=== PATIENT | male | born 1980 | race African-American/Black ===

== ENCOUNTER 2018-03-24 17:03 | Emergency (ER) | payer BC ==
[2018-03-24] MEDS ORDERED: LACTATED RINGERS SOLUTION 1,000 ML IV STA (17:05)
[2018-03-24 17:11] VITALS: TEMP 98.7; BMI 29.0
--- NOTE | 2018-03-24 17:33 | PDOC ---
History of Present Illness - General Chief Complaint: Pain, Acute Stated Complaint: ABD PAIN History Source: Patient Exam Limitations: No Limitations - History of Present Illness Initial Comments: 03/24/18 19:12 Judson Morales 38 YOM with h/o GERD and no surgical history presenting with acute onset constant crampy nonradiating periumbilical abdominal pain x today since 10am, a/w nausea.. +tolerating crackers and tea. +nausea. No vomiting or diarrhea, bloody stools, fevers or chills. tylenol/zantac and tums KILN PUSHER with some relief. Ate [employer] last night, in addition to milk and frosted flakes , hot peppers and ramen (which are known precipitants of GERD and abdominal pain ), felt some vague abdominal pain following dinner last night. no ETOH or tobacco or drug use. no travel or sick contacts. 03/24/18 19:12 Past History - Past Medical History Allergies/Adverse Reactions: Allergies Allergy/AdvReac Type Severity Reaction Status Date / Time No Known Allergies Allergy Verified 03/24/18 17:05 Home Medications: Ambulatory Orders Esomeprazole Magnesium [Nexium 24Hr] 40 mg PO DAILY PRN 03/24/18 Ondansetron [Zofran Odt -] 4 mg SL TID PRN #9 od.tablet 03/24/18 Cardiac Disorders: Yes (HEART MURMUR) COPD: No GI Disorders: Yes (ACID REFLUX) - Suicide/Smoking/Psychosocial Hx Smoking History: Never smoked Have you smoked in the past 12 months: No Information on smoking cessation initiated: No Hx Alcohol Use: No Drug/Substance Use Hx: No Abd/GI Specific PMHX - Complaint Specific PMHX Colitis: No Diverticulitis: No GERD: Yes Hepatitis: No Irritable Bowel Synd (IBS): No Pancreatitis: No GI Ulcer Disease: No Review of Systems - Review of Systems Able to Perform ROS?: Yes Comments:: 03/24/18 19:13 GENERAL/CONSTITUTIONAL: No fever or chills. No weakness. no sweats. HEAD, EYES, EARS, NOSE AND THROAT: No sore throat or mouth pain. No difficulty swallowing.. No congestion. CARDIOVASCULAR: No chest pain or palpitations,. RESPIRATORY: No SOB, cough. GASTROINTESTINAL +abdominal pain, +nausea. No vomiting. No diarrhea or constipation. No bloody stools. GENITOURINARY: No hematuria, dysuria, frequency, urgency or other changes. MUSCULOSKELETAL: No joint or muscle swelling or pain. No neck or back pain. SKIN: No rash or changes in skin color or lesions. NEUROLOGIC: No headache, dizziness HEMATOLOGIC/LYMPHATIC: No anemia ALLERGIC/IMMUNOLOGIC: No allergy. All other systems reviewed and negative, or as documented in HPI. *Physical Exam - Vital Signs Last Vital Signs Temp Pulse Resp BP Pulse Ox 98.7 F 83 18 148/105 97 03/24/18 17:03 03/24/18 17:03 03/24/18 17:03 03/24/18 17:03 03/24/18 17:03 - Physical Exam Comments: 03/24/18 19:13 General: Well appearing, awake and alert, NAD. HEENT: NCAT, PERRL, EOMI, clear conjunctiva, anicteric, moist mucus membranes, clear oropharynx, no oral lesions.. Neck: neck supple Lungs: CTAB, normal and even respirations, no respiratory distress Heart: RRR, no murmurs, 2+ peripheral pulses throughout, no peripheral edema Abdomen: soft, normal inspection. +periumbilical TTP, no focal lower quad tenderness, no murphys sign or mcburneys point tenderess, no peritoneal signs. No CVAT Back: nontender, normal inspection and ROM MSK: no edema, SAGASTUME x4 Neuro: alert Skin: warm and well perfused, cap refill <2 sec, normal color ED Treatment Course - LABORATORY CBC & Chemistry Diagram: 03/24/18 17:30 03/24/18 17:30 Medical Decision Making - Medical Decision Making 03/24/18 19:13 38 YOM with periumbilical pain and nausea today. DDx abdominal pain: GERD, PUD, esophageal spasm, pancreatitis, hepatitis, enteritis, cholecystitis, hernia, appendicitis, diverticulitis vital signs reviewed, wnl, no fevers. nontoxic appearing plan: CBC, CMP, lipase. mylanta and zofran, IVF. morphine for 6/10 abdominal pain, side effects cautioned. on clinical reeval 630pm, feels much improved, still pending lipase. shared decision making with patient with options including CT a/p to r/o early appy with vague periumbilical abdominal pain and leukocytosis or serial exams/ observation with discharge home with close return precautions if worsening symptoms including fevers, RLQ/LLQ pain, dehydration, vomiting, BM changes or other acute changes. lower suspicion for appy given no lower quad pain, fevers or systemic sx. pt amenable to latter option, who is reasonable to follow up and follow instructions, rx zofran PRN. stable condition, will discharge with reeval, lipase also normal. 03/24/18 19:13 03/25/18 23:19 *DC/Admit/Observation/Transfer Diagnosis at time of Disposition: Abdominal pain Qualifiers: Abdominal location: periumbilical Qualified Code(s): R10.33 - Periumbilical pain - Discharge Dispostion Disposition: HOME Condition at time of disposition: Stable - Prescriptions Prescriptions: Ondansetron [Zofran Odt -] 4 mg SL TID PRN #9 od.tablet PRN Reason: Nausea - Referrals - Patient Instructions Printed Discharge Instructions: DI for Abdominal Pain-Adult Additional Instructions: Your laboratory were negative for abnormalities,only elevated white blood cell count that could indicate infection/inflammation or stress response. Follow up with your physician and consultants as instructed, take your medications as instructed including zofran three times a day as needed for nausea. Return if worsening symptoms including fevers, headache, vomiting, right or left lower quadrant abdominal pain, chest pain, shortness of breath, syncope, dehydration, inability to take things by mouth, altered mental status, or worsening concerning symptoms. stay hydrated, rest well. - Post Discharge Activity
[2018-03-24 17:59] LABS: BASO % 0.5 % (0-2.0); HEMOGLOBIN 14.1 GM/dl (11.7-16.9); LYMPH % 6.4 % (8-40); MCH 26.9 pg (25.7-33.7); MCHC 33.6 g/dl (32.0-35.9); MEAN CELL VOLUME 80.1 fl (80-96); MEAN PLT VOLUME 9.6 fl (7.5-11.1); MONO % 2.7 % (3.8-10.2); NEUT % 90.4 % (42.8-82.8); PLATELET COUNT 211 K/MM3 (134-434); RBC 5.25 M/mm3 (4.00-5.60); RDW 12.3 % (11.9-15.9); WHITE BLOOD COUNT 13.1 K/mm3 (4.0-10.8)
[2018-03-24] MEDS ORDERED: MAG HYDROX/AL HYDROX/SIMETH 30 ML UNIT-DOSE CUP PO ONE (18:10)
[2018-03-24 18:13] LABS: ALBUMIN 4.6 g/dl (3.5-5.0); ALK PHOS 74 U/L (32-92); ANION GAP 6 (8-16); BILIRUBIN,TOTAL 0.9 mg/dl (0.2-1.0); BLOOD UREA NITROGEN 12 mg/dl (7-18); CALCIUM 9.6 mg/dl (8.4-10.2); CHLORIDE 105 mmol/L (98-107); CO2 27 mmol/L (22-28); CREATININE 1.2 mg/dl (0.6-1.3); GLUCOSE,RANDOM 113 mg/dl (74-106); POTASSIUM 4.2 mmol/L (3.5-5.1); SGOT/AST 41 U/L (10-42); SGPT/ALT 50 U/L (10-40); SODIUM 138 mmol/L (136-145); TOT PROT 7.8 g/dl (6.4-8.3)
[2018-03-24] MEDS ORDERED: morphine CARPU-JECT 4 MG/1 ML DISP.SYRIN IVPUSH ONE (18:52)
[2018-03-24] MEDS ORDERED: morphine SULFATE 4 MG/ML VIAL ONE (19:06)
--- NOTE | 2018-03-24 19:29 | PDOC ---
*Physical Exam - Vital Signs Last Vital Signs Temp Pulse Resp BP Pulse Ox 98.7 F 83 18 148/105 97 03/24/18 17:03 03/24/18 17:03 03/24/18 17:03 03/24/18 17:03 03/24/18 17:03 ED Treatment Course - LABORATORY CBC & Chemistry Diagram: 03/24/18 17:30 03/24/18 17:30 - ADDITIONAL ORDERS Additional order review: Laboratory Results 03/24/18 17:30 Sodium 138 Potassium 4.2 Chloride 105 Carbon Dioxide 27 Anion Gap 6 L BUN 12 Creatinine 1.2 Creat Clearance w eGFR > 60 Random Glucose 113 H Calcium 9.6 Total Bilirubin 0.9 AST 41 ALT 50 H Alkaline Phosphatase 74 Total Protein 7.8 Albumin 4.6 03/24/18 17:30 RBC 5.25 MCV 80.1 MCHC 33.6 RDW 12.3 MPV 9.6 Neutrophils % 90.4 H Lymphocytes % 6.4 L Monocytes % 2.7 L Eosinophils % 0.0 Basophils % 0.5 - Medications Given in the ED: ED Medications Discontinued Medications Generic Name Dose Route Start Last Admin Trade Name Teresa PRN Reason Stop Dose Admin Al Hydroxide/Mg Hydroxide 30 ml 03/24/18 18:10 03/24/18 18:30 Mylanta Oral Suspension - PO 03/24/18 18:11 30 ml ONCE ONE Administration Lactated Ringer's 1,000 mls @ 1,000 mls/hr 03/24/18 17:05 03/24/18 17:40 Lactated Ringers Solution IV 03/24/18 18:04 1,000 mls/hr ONCE STA Administration Morphine Sulfate 4 mg 03/24/18 18:52 03/24/18 19:09 Morphine Injection - IVPUSH 03/24/18 18:53 4 mg ONCE ONE Administration Medical Decision Making - Medical Decision Making 03/24/18 20:16 Pt signed out to nh pending lipase Laboratory Tests 03/24/18 17:30 Lipase 101 Will discharge to home Pt has instructions for return Clinical impression: ledy umbilical pain, initial presentation *DC/Admit/Observation/Transfer Diagnosis at time of Disposition: Abdominal pain Qualifiers: Abdominal location: periumbilical Qualified Code(s): R10.33 - Periumbilical pain - Discharge Dispostion Disposition: HOME Condition at time of disposition: Stable - Prescriptions Prescriptions: Ondansetron [Zofran Odt -] 4 mg SL TID PRN #9 od.tablet PRN Reason: Nausea - Referrals - Patient Instructions Printed Discharge Instructions: DI for Abdominal Pain-Adult Additional Instructions: Your laboratory were negative for abnormalities,only elevated white blood cell count that could indicate infection/inflammation or stress response. Follow up with your physician and consultants as instructed, take your medications as instructed including zofran three times a day as needed for nausea. Return if worsening symptoms including fevers, headache, vomiting, right or left lower quadrant abdominal pain, chest pain, shortness of breath, syncope, dehydration, inability to take things by mouth, altered mental status, or worsening concerning symptoms. stay hydrated, rest well. - Post Discharge Activity
[2018-03-24 19:33] LABS: LIPASE 101 U/L (73-393)
[2018-03-24 20:30] VITALS: BP 139/87; PULSE 79
== END 2018-03-24 20:30 | disposition home or self-care (01) ==
LOC: FER 17:03
PROC: 3E033NZ Introduction of Analgesics, Hypnotics, Sedatives into Peripheral Vein, Percutaneous Approach (ICD-10-PCS; principal; 2018-03-24)
PROC: 3E0337Z Introduction of Electrolytic and Water Balance Substance into Peripheral Vein, Percutaneous Approach (ICD-10-PCS; 2018-03-24)
DX: R10.33 Periumbilical pain (principal); K21.9 Gastro-esophageal reflux disease without esophagitis; R01.1 Cardiac murmur, unspecified
CPT/HCPCS: 36415; 80053; 83690; 85025; 99285-25

== ENCOUNTER 2018-03-25 04:45 | Day surgery (SDC) | payer BC ==
--- NOTE | 2018-03-25 04:46 | PDOC ---
History of Present Illness - General Chief Complaint: Pain, Acute Stated Complaint: ABD PAIN Time Seen by Provider: 03/25/18 04:46 History Source: Patient Exam Limitations: No Limitations - History of Present Illness Initial Comments: 03/25/18 05:10 Mr Morales is a 38 yo M who returns to the ER with a complaint of abdominal pain Briefly, he was seen in the ER earlier for acute onset constant crampy nonradiating periumbilical abdominal pain during the day associated with nausea, no vomiting or diarrhea, no bloody stools. Labs were sent, pt treated with pain medications and improved. He was discharged to home. At approximately 2am, he awoke with right lower abdominal pain and tenderness No fevers or chills Given the change in his symptoms, he came back to the ER for re assessment ROS: GENERAL/CONSTITUTIONAL: No fever or chills. No weakness. no sweats. HEAD, EYES, EARS, NOSE AND THROAT: No sore throat or mouth pain. No difficulty swallowing.. No congestion. CARDIOVASCULAR: No chest pain or palpitations,. RESPIRATORY: No SOB, cough. GASTROINTESTINAL +abdominal pain, +nausea. No vomiting. No diarrhea or constipation. No bloody stools. GENITOURINARY: No hematuria, dysuria, frequency, urgency or other changes. MUSCULOSKELETAL: No joint or muscle swelling or pain. No neck or back pain. SKIN: No rash or changes in skin color or lesions. NEUROLOGIC: No headache, dizziness HEMATOLOGIC/LYMPHATIC: No anemia ALLERGIC/IMMUNOLOGIC: No allergy. All other systems reviewed and negative, or as documented in HPI. PE: General: Well appearing, awake and alert, NAD. HEENT: NCAT, PERRL, EOMI, clear conjunctiva, anicteric, moist mucus membranes, clear oropharynx, no oral lesions.. Neck: neck supple Lungs: CTAB, normal and even respirations, no respiratory distress Heart: RRR, no murmurs, 2+ peripheral pulses throughout, no peripheral edema Abdomen: soft, + RLQ tenderness to palpation, no peritoneal signs. Back: nontender, normal inspection and ROM MSK: no edema, SAGASTUME x4 Neuro: alert Skin: warm and well perfused, cap refill <2 sec, normal color 03/25/18 06:33 Past History - Past Medical History Allergies/Adverse Reactions: Allergies Allergy/AdvReac Type Severity Reaction Status Date / Time No Known Allergies Allergy Verified 03/24/18 17:05 Home Medications: Ambulatory Orders Esomeprazole Magnesium [Nexium 24Hr] 40 mg PO DAILY PRN 03/24/18 Ondansetron [Zofran Odt -] 4 mg SL TID PRN #9 od.tablet 03/24/18 Cardiac Disorders: Yes (HEART MURMUR) COPD: No GI Disorders: Yes (ACID REFLUX) - Suicide/Smoking/Psychosocial Hx Smoking History: Never smoked Have you smoked in the past 12 months: No Hx Alcohol Use: No Drug/Substance Use Hx: No Medical Decision Making - Medical Decision Making 03/25/18 05:19 Pt presentation concerning for acute appendicitis Will do: Lab already sent during 1st visit CT IV contrast 03/25/18 06:34 CT = early acute appendicitis Zosyn ordered Call placed to Dr Mayra Menendez will admit to his service Call placed to Dr Galdamez Clinical Impression: Appendicitis *DC/Admit/Observation/Transfer Diagnosis at time of Disposition: Acute appendicitis Qualifiers: Acute appendicitis type: unspecified acute appendicitis type Qualified Code(s) : K35.80 - Unspecified acute appendicitis - Discharge Dispostion Condition at time of disposition: Stable Decision to Admit order: Yes - Referrals Referrals: Mu Richardson MD [Primary Care Provider] - - Patient Instructions - Post Discharge Activity
[2018-03-25] MEDS ORDERED: SODIUM CHLORIDE 1,000 ML IV STA (05:02)
[2018-03-25 05:07] VITALS: BMI 29.0
[2018-03-25] MEDS ORDERED: HYDROmorphone HCL CARPU-JECT 1 MG/1 ML DISP.SYRIN ONE (05:08)
[2018-03-25] MEDS ORDERED: HYDROmorphone HCL CARPU-JECT 1 MG/1 ML DISP.SYRIN IVPUSH ONE (05:12)
[2018-03-25] MEDS ORDERED: PIPERACILLIN/TAZOB 4.5 GM 4.5 GM in DEXTROSE 5%-WATER 100 ML IVPB ONE (06:05)
[2018-03-25] MEDS ORDERED: PIPERACILLIN/TAZOBACTAM 4.5 GM VIAL IVPB ONE (06:15)
[2018-03-25 08:21] LABS: URINE APPEARANCE Clear; URINE BILIRUBIN Negative (NEGATIVE); URINE COLOR Yellow; URINE GLUCOSE (UA) Negative (NEGATIVE); URINE KETONE Negative (NEGATIVE); URINE LEUK ESTERASE Negative (NEGATIVE); URINE NITRITE Negative (NEGATIVE); URINE PROTEIN Negative (NEGATIVE); URINE UROBILINOGEN 0.2 (0.2-1.0)
[2018-03-25] MEDS ORDERED: PROMETHAZINE HCL 25 MG/1 ML VIAL IVPUSH PRN (08:23)
[2018-03-25] MEDS ORDERED: ONDANSETRON 4 MG/2 ML VIAL IVPUSH PRN ×2 (08:23→12:59)
[2018-03-25] MEDS ORDERED: LACTATED RINGERS SOLUTION 1,000 ML IV SCH (08:30)
[2018-03-25 09:06] LABS: BASO % 0.1 % (0-2.0); EOS % 0.3 % (0-4.5); HEMATOCRIT 39.1 % (35.4-49); LYMPH % 6.8 % (8-40); MCH 26.9 pg (25.7-33.7); MCHC 33.3 g/dl (32.0-35.9); MEAN CELL VOLUME 80.9 fl (80-96); MEAN PLT VOLUME 9.4 fl (7.5-11.1); MONO % 4.7 % (3.8-10.2); NEUT % 88.1 % (42.8-82.8); PLATELET COUNT 203 K/MM3 (134-434); RBC 4.84 M/mm3 (4.00-5.60); RDW 12.5 % (11.9-15.9); WHITE BLOOD COUNT 12.9 K/mm3 (4.0-10.8)
[2018-03-25 09:18] LABS: ALBUMIN 4.1 g/dl (3.5-5.0); ALK PHOS 67 U/L (32-92); ANION GAP 5 (8-16); BILIRUBIN,TOTAL 1.6 mg/dl (0.2-1.0); BLOOD UREA NITROGEN 10 mg/dl (7-18); CALCIUM 8.8 mg/dl (8.4-10.2); CHLORIDE 102 mmol/L (98-107); CO2 25 mmol/L (22-28); CREATININE 1.1 mg/dl (0.6-1.3); GLUCOSE,RANDOM 127 mg/dl (74-106); SGOT/AST 28 U/L (10-42); SGPT/ALT 42 U/L (10-40); SODIUM 132 mmol/L (136-145); TOT PROT 7.1 g/dl (6.4-8.3)
--- NOTE | 2018-03-25 09:25 | HP ---
Admitting History and Physical - Admission Chief Complaint: abd pain for one day. it is associated with nausea and loss of appetiet History Source: Patient Limitations to Obtaining History: No Limitations - Past Surgical History Past Surgical History: Yes: None - Smoking History Smoking history: Never smoked Have you smoked in the past 12 months: No - Alcohol/Substance Use Hx Alcohol Use: No - Social History Usual Living Arrangement: Yes: With Spouse Home Medications - Allergies Allergies/Adverse Reactions: Allergies Allergy/AdvReac Type Severity Reaction Status Date / Time No Known Allergies Allergy Verified 03/24/18 17:05 - Home Medications Home Medications: Ambulatory Orders Esomeprazole Magnesium [Nexium 24Hr] 40 mg PO DAILY PRN 03/24/18 Ondansetron [Zofran Odt -] 4 mg SL TID PRN #9 od.tablet 03/24/18 Family Disease History - Family Disease History Family History: Denies Review of Systems Unable to obtain ROS, reason: negative Physical Examination Vital Signs: Vital Signs Temperature 97.4 F L 03/25/18 07:07 Pulse Rate 95 H 03/25/18 07:07 Respiratory Rate 18 03/25/18 07:07 Blood Pressure 126/76 03/25/18 07:07 O2 Sat by Pulse Oximetry (%) 100 03/25/18 04:48 Problem List - Problems (1) Acute appendicitis Code(s): K35.80 - UNSPECIFIED ACUTE APPENDICITIS Qualifiers: Acute appendicitis type: unspecified acute appendicitis type Qualified Code (s): K35.80 - Unspecified acute appendicitis Assessment/Plan Medical he is stable for surgery discussed with family continue the iv fluids and npo
[2018-03-25] MEDS ORDERED: DEXTROSE 5%-0.45% SALINE 1,000 ML IV SCH (09:30)
[2018-03-25 09:54] LABS: INR 1.25 (0.82-1.09); PROTHROMBIN TIME (PATIENT) 13.9 SEC (10.2-13.0)
[2018-03-25] MEDS ORDERED: BUPIVACAINE HCL/PF 0.5% (5MG/ML) 10 ML VIAL ONE (10:54)
--- NOTE | 2018-03-25 11:05 | CONSULT ---
- Consultation REQUESTING PROVIDER: LEI ER MD CONSULT REQUEST: We have been asked to surgically evaluate this patient for acute appendicitis PCP:Stephanie Menendez HISTORY OF PRESENT ILLNESS: 38 y/o male presented to the ER after previous evaluation and d/c for abdominal pain; his pain in the RLQ became worse and upon reevaluation he was found to have acute appendicitis on CT; pain is sharp in the RLQ w/o radiation; he has no othet GI/ c/o. He denies n/v/anorexia. PMHx: none PSHx: none Home Medications Medication Instructions Recorded Esomeprazole Magnesium [Nexium 40 mg PO DAILY PRN 03/24/18 24Hr] Ondansetron [Zofran Odt -] 4 mg SL TID PRN #9 od.tablet 03/24/18 Allergies Allergy/AdvReac Type Severity Reaction Status Date / Time No Known Allergies Allergy Verified 03/24/18 17:05 PHYSICAL EXAM: GENERAL: Awake, alert, and fully oriented, in no acute distress. HEAD: Normal with no signs of trauma. EYES: sclera anicteric, conjunctiva clear. NECK: Normal ROM, supple without lymphadenopathy, JVD, or masses. ABDOMEN: Soft, tender RLQ w/guarding, not distended, normoactive bowel sounds, no rebound, no masses. No organomegaly. Psoas and obturator signs are present; Rovsings sign is absent MUSCULOSKELETAL: Normal ROM at all joints. No bony deformities or tenderness. No CVA tenderness. UPPER EXTREMITIES: 2+ pulses, warm, well-perfused. No cyanosis. Cap refill <2 seconds. No peripheral edema. LOWER EXTREMITIES: 2+ pulses, warm, well-perfused. No calf tenderness. No peripheral edema. NEUROLOGICAL: Normal speech, gait not observed. PSYCH: Cooperative. Good eye contact. Appropriate mood and affect. SKIN: Warm, dry, normal turgor, no rashes or lesions noted. Vital Signs Temperature 97.4 F L 03/25/18 07:07 Pulse Rate 95 H 03/25/18 07:07 Respiratory Rate 18 03/25/18 07:07 Blood Pressure 126/76 03/25/18 07:07 O2 Sat by Pulse Oximetry (%) 100 03/25/18 04:48 Lab Results WBC 12.9 K/mm3 (4.0-10.8) H 03/25/18 06:56 RBC 4.84 M/mm3 (4.00-5.60) 03/25/18 06:56 Hgb 13.0 GM/dl (11.7-16.9) 03/25/18 06:56 Hct 39.1 % (35.4-49) 03/25/18 06:56 MCV 80.9 fl (80-96) 03/25/18 06:56 MCHC 33.3 g/dl (32.0-35.9) 03/25/18 06:56 RDW 12.5 % (11.9-15.9) 03/25/18 06:56 Plt Count 203 K/MM3 (134-434) 03/25/18 06:56 Sodium 132 mmol/L (136-145) L 03/25/18 08:00 Potassium 4.0 mmol/L (3.5-5.1) 03/25/18 08:00 Chloride 102 mmol/L (98-107) 03/25/18 08:00 Carbon Dioxide 25 mmol/L (22-28) 03/25/18 08:00 Anion Gap 5 (8-16) L 03/25/18 08:00 BUN 10 mg/dl (7-18) 03/25/18 08:00 Creatinine 1.1 mg/dl (0.6-1.3) 03/25/18 08:00 Random Glucose 127 mg/dl (74-106) H 03/25/18 08:00 Calcium 8.8 mg/dl (8.4-10.2) 03/25/18 08:00 INR 1.25 (0.82-1.09) H 03/25/18 06:57 CT-early acute appendicitis w/appendicolith IMP: acute appendicitis PLAN: Lap appendectomy; possible open; r/b/t/a's d/w the patient and informed consent obtained. Joselo Galdamez MD FACS
[2018-03-25] MEDS ORDERED: MIDAZOLAM HCL 2 MG/2 ML SINGLE DOSE VIAL ONE (11:15)
[2018-03-25] MEDS ORDERED: ROCURONIUM BROMIDE 50 MG/5 ML VIAL ONE (11:15)
[2018-03-25] MEDS ORDERED: PROPOFOL 20 ML ONE ×2 (11:15)
[2018-03-25] MEDS ORDERED: LIDOCAINE HCL/PF 2% SDV 5ML VIAL ONE (11:16)
[2018-03-25] MEDS ORDERED: KETOROLAC TROMETHAMINE 30 MG/1 ML VIAL ONE (12:20)
[2018-03-25] MEDS ORDERED: NEOSTIGMINE METHYLSULFATE 0.5 MG/ML - 10 ML MDV ONE (12:20)
[2018-03-25] MEDS ORDERED: GLYCOPYRROLATE 0.2 MG/1 ML VIAL ONE (12:20)
[2018-03-25] MEDS ORDERED: PATIENT'S OWN MEDICATION (NON-FORMULARY) (Esomeprazole Magnesium [Nexium 24hr] 40 MG) PO PRN (12:42)
[2018-03-25] MEDS ORDERED: BUPIVACAINE HCL/PF 0.5% (5MG/ML) 10 ML VIAL IJ ONE (12:42)
[2018-03-25] MEDS ORDERED: oxyCODONE HCL 5 MG TABLET PO PRN ×2 (12:45→12:46)
--- NOTE | 2018-03-25 12:55 | OP ---
Operative Note - Note: Operative Date: 03/25/18 Pre-Operative Diagnosis: acute appendicits Operation: laparoscopic appendectomy Surgeon: Joselo Galdamez Fish Frog Or Oyster Farmer: Amanda King Anesthesiologist/SEWER: Alberto Burton Anesthesia: General Estimated Blood Loss (mls): 20 Fluid Volume Replaced (mls): 300 Operative Report Dictated: Yes
--- NOTE | 2018-03-25 12:56 | SURG ---
Surgery Buckle Sewer Machine Note Buckle Sewer Machine: Amanda King PA-C Date of Service: 03/25/18 Diagnosis: acute appendicitis Procedure: laparoscopic appendectomy I was present for the entirety of the operative procedure. For further detail, please refer to operative report. Visit type - Case Type Case Type: ED Admission - Emergency Emergency Visit: Yes ED Registration Date: 03/25/18 Care time: The patient presented to the Emergency Department on the above date and was hospitalized for further evaluation of their emergent condition. - New patient This patient is new to me today: Yes Date on this admission: 03/25/18
--- NOTE | 2018-03-25 13:13 | OP ---
DATE OF OPERATION: 03/25/2018 PREOPERATIVE DIAGNOSIS: Acute appendicitis. POSTOPERATIVE DIAGNOSIS: Acute appendicitis. PROCEDURE: Laparoscopic appendectomy. SURGEON: Joselo Galdamez MD BELLING MACHINE OPERATOR: Amanda King PA-C ANESTHESIA: General. OPERATIVE FINDINGS: Acute suppurative appendicitis. The rest of the findings were unremarkable. PROCEDURE: Patient was placed on the operating room table in the supine position. After the successful induction of general anesthesia and the placement of sequential compression devices on the patient's lower extremities his abdomen was prepped with ChloraPrep and draped in sterile fashion. A timeout was taken and then pneumoperitoneum established above the umbilicus using a Veress needle to an intraabdominal pressure of 15 mmHg. Once this was achieved a 5-mm port was placed and laparoscopy was carried out and the previously noted findings were observed. A 12-mm suprapubic port and a left lower quadrant 5-mm port were placed as well and the patient placed with head down and rotated towards the left side. Using blunt dissection the appendix which was adherent to the abdominal sidewall was mobilized and in addition further dissection using the LigaSure device was carried out. The mesoappendix was then identified and serially divided using the LigaSure device. Adhesions and additional fat were taken down using blunt dissection to expose the base of the appendix at its junction with the cecum and the convergence of the tinea. Next a 45-mm purple load Endo-SILVER was fired across the base of the appendix. The appendix was then placed in an EndoCatch and there was no evidence of bleeding from the staple line or other abnormality. The appendix was removed through the suprapubic port. Pneumoperitoneum reestablished and then hemostasis was noted to be good. All ports were then removed under laparoscopic vision without evidence of bleeding from the port sites and the pneumoperitoneum was evacuated. All port sites were infiltrated with 0.5% Marcaine and the defect at the supraumbilical port fascia was closed with a 0 Vicryl figure-of-8 suture. The skin edges were reapproximated with 4-0 Monocryl in a subcuticular fashion. Steri-Strips and Band-Aid dressings were placed and the procedure terminated at this point and the patient aroused from general anesthesia and transferred to the postanesthesia care unit in stable condition, awake and alert. Estimated blood loss: 15 mL. Replacement: Crystalloid. Drains: None. Specimen: Appendix to Pathology. I, Joselo Galdamez, was physically present in the operating room from the time the patient was placed on the operating room table until he was transferred to the postanesthesia care unit in my accompaniment. MD TOMER Rodgers/[id number] MTDD
[2018-03-25] MEDS: LACTATED RINGERS SOLUTION 1,000 ML IV SCH (13:55)
[2018-03-25] MEDS: ACETAMINOPHEN 325 MG TABLET (FP) PO SCH ×2 (17:15→23:37)
[2018-03-25] MEDS ORDERED: KETOROLAC TROMETHAMINE 30 MG/1 ML VIAL IVPUSH PRN (20:00)
[2018-03-25] MEDS: HEPARIN NA (PORCINE) 5,000 UNITS/ML 1ML VIAL SQ SCH (21:39)
[2018-03-26] MEDS: LACTATED RINGERS SOLUTION 1,000 ML IV SCH ×2 (06:29→13:46)
[2018-03-26] MEDS: ACETAMINOPHEN 325 MG TABLET (FP) PO SCH ×2 (06:31→09:09)
--- NOTE | 2018-03-26 07:29 | PN ---
Progress Note (short form) - Note Progress Note: s/p surgery much better no pain vs Vital Signs Period Temp Pulse Resp BP Sys/Jerome Pulse Ox Last 24 Hr 97 F-99.6 F 70-87 18-21 111-144/62-737 96-100 CBC, BMP 03/25/18 06:56 03/25/18 08:00 Heent nad abd soft ext no edema ap sp surgery pd 1 continue same meds Problem List - Problems (1) Acute appendicitis Code(s): K35.80 - UNSPECIFIED ACUTE APPENDICITIS Qualifiers: Acute appendicitis type: unspecified acute appendicitis type Qualified Code (s): K35.80 - Unspecified acute appendicitis
--- NOTE | 2018-03-26 08:37 | EKG ---
Test Reason : Blood Pressure : / mmHG Vent. Rate : 075 BPM Atrial Rate : 075 BPM P-R Int : 148 ms QRS Dur : 102 ms QT Int : 380 ms P-R-T Axes : 073 056 043 degrees QTc Int : 424 ms NORMAL SINUS RHYTHM MINIMAL VOLTAGE CRITERIA FOR LVH, MAY BE NORMAL VARIANT BORDERLINE ECG NO PREVIOUS ECGS AVAILABLE Confirmed by RUDI VARGHESE MD ([id number]) on 03/26/2018 8:36:40 AM Referred By: MD VIEIRA Confirmed By:RUDI VARGHESE MD
--- NOTE | 2018-03-26 09:14 | PN ---
Progress Note, Physician Chief Complaint: day #1 s/p lap AP - Current Medication List Current Medications: Active Medications Acetaminophen (Tylenol -) 650 mg PO Q6H [facility] Stop: 03/26/18 10:01 Last Admin: 03/26/18 09:09 Dose: Not Given Heparin Sodium (Porcine) (Heparin -) 5,000 unit SQ BID [facility] Last Admin: 03/25/18 21:39 Dose: 5,000 unit Lactated Ringer's (Lactated Ringers Solution) 1,000 mls @ 125 mls/hr IV ASDIR [facility] Last Admin: 03/26/18 06:29 Dose: 125 mls/hr Ketorolac Tromethamine (Toradol Injection -) 30 mg IVPUSH Q8H-IV PRN PRN Reason: PAIN LEVEL 1 - 3 Stop: 03/30/18 19:59 Ondansetron HCl (Zofran Injection) 4 mg IVPUSH Q6H PRN PRN Reason: NAUSEA AND/OR VOMITING Oxycodone HCl (Roxicodone -) 5 mg PO Q6H PRN PRN Reason: PAIN LEVEL 1-5 Oxycodone HCl (Roxicodone -) 10 mg PO Q6H PRN PRN Reason: PAIN LEVEL 6-10 Pantoprazole Sodium (Protonix -) 40 mg PO DAILY [facility] - Objective Vital Signs: Vital Signs Temperature 98.3 F 03/26/18 06:28 Pulse Rate 82 03/26/18 06:28 Respiratory Rate 21 03/26/18 06:28 Blood Pressure 111/62 03/26/18 06:28 O2 Sat by Pulse Oximetry (%) 96 03/25/18 14:53 Labs: CBC, BMP 03/25/18 06:56 03/25/18 08:00 INR, PTT INR 1.25 (0.82-1.09) H 03/25/18 06:57 Assessment/Plan doing well, no anesthetic issues. To be d/c today
[2018-03-26] MEDS: HEPARIN NA (PORCINE) 5,000 UNITS/ML 1ML VIAL SQ SCH (09:16)
[2018-03-26] MEDS ORDERED: PANTOPRAZOLE 40 MG TABLET (FP) PO SCH (10:00)
--- NOTE | 2018-03-26 11:05 | PN ---
Progress Note (short form) - Note Progress Note: Attending Surgeon POD#1 No c/o; tolerating clear liquids; ambulating VSS AF abdomen-soft; flat and non tender; dressings c/d/i IMP: doing well s/p lap appendectomy PLAN : advance diet and discharge to office f/u. Joselo Galdamez MD FACS
[2018-03-26 14:05] VITALS: BP 125/65; PULSE 85; TEMP 98
--- NOTE | 2018-03-29 12:40 | PATH ---
Surgical Pathology Report Patient Name: GUSTAVO SPANN [facility]. Rec. #: [id number] /Age/Gender: 1980 (Age: 38) / M Account: [id number] Location: AMBULATORY SURG Taken: 03/25/2018 Received: 03/27/2018 Reported: 03/29/2018 Physicians: Joselo Galdamez MD Specimen(s) Received APPENDIX Clinical History Acute appendicitis Final Diagnosis APPENDIX, APPENDECTOMY: ACUTE APPENDICITIS AND PERIAPPENDICITIS. Electronically Signed Holley Duran M.D. Gross Description Received in formalin, labeled "appendix," is a 7.5 cm. in length vermiform appendix with a stapled margin of resection and minimal attached fat. The serosa is wilkes-heart with attached exudate. Sectioning reveals a focally hemorrhagic lumen. The wall of the appendix averages 0.1 cm. in thickness. Bee Raiser sections are submitted in one cassette. /03/27/2018 saudi/03/27/2018
== END 2018-03-26 17:58 | disposition home or self-care (01) ==
LOC: FER 04:45 → J6S 06:35 → UNDOADMIN 06:35 → JASUSAT 12:49 → J6S 12:49 → JASUSAT 03-26 17:58
PROVIDERS: ATTEND Internal Medicine
PROC: 0DTJ4ZZ Resection of Appendix, Percutaneous Endoscopic Approach (ICD-10-PCS; principal; 2018-03-25 10:27)
DX: K35.89 Other acute appendicitis (principal)
CPT/HCPCS: 36415; 71045-TC-FY; 74177-TC; 80053; 81003; 85025; 85610; 86850; 86900; 86901; 87086; 88304-TC; 93005; 94760; 99285-25; J1644; J7030

== ENCOUNTER 2022-11-04 11:09 | Emergency (ER) | payer BC ==
[2022-11-04 11:29] VITALS: BP 140/77; PULSE 72; RESP 15; TEMP 99.5; BMI 28.8
[2022-11-04 12:00] LABS: HEMATOCRIT 41.1 % (35.4-49); HEMOGLOBIN 14.1 G/dL (11.7-16.9); MCH 28.3 pg (25.7-33.7); MCHC 34.4 g/dl (32.0-35.9); MEAN CELL VOLUME 82.4 fl (80-96); MEAN PLT VOLUME 8.9 fl (7.5-11.1); PLATELET COUNT 207.3 10^3/uL (134-434); RBC 4.99 10^6/uL (4.00-5.60); RDW 13.9 % (11.9-15.9); WHITE BLOOD COUNT 4.7 10^3/uL (4.0-10.8)
[2022-11-04 12:08] LABS: ALBUMIN 4.8 g/dl (3.4-5.0); BILIRUBIN,TOTAL 1.1 mg/dl (0.2-1); CALCIUM 9.6 mg/dl (8.5-10); CREATININE 1.1 mg/dl (0.55-1.3); MAGNESIUM 2.2 mg/dL (1.8-2.4); TOT PROT 8.1 g/dl (6.4-8.2)
[2022-11-04 12:51] LABS: PLATELET ESTIMATE ADEQUATE
== END 2022-11-04 12:49 | disposition home or self-care (01) ==
LOC: FER 11:09
DX: R07.89 Other chest pain (principal)
CPT/HCPCS: 36415; 71046-TC-FY; 80053; 83690; 83735; 84484; 85027; 93005; 99285-25